=== PATIENT | male | born 1955 | race Caucasian/White ===

== ENCOUNTER → 2018-11-20 | Outpatient (CLI) | payer OTHER ==
[~2018-11-20] MED LIST: AMLODIPINE-VALSARTAN PO; ASPIRIN81 MG PO; ATORVASTATIN CA20 MG PO; DIATRIZOATE MEGL/DIATRIZOA SOD 30 ML BTL PO ONE; HYDROCHLOROTHIA25 MG PO; IOPAMIDOL 370 MG/ML 200 ML INFUS..BTL INJ ONE; SODIUM CHLORIDE 0.9% 50ML 50 ML ONE
[2018-11-20 09:48] LABS: BLOOD UREA NITROGEN 14 mg/dL (7-26); BUN/CREATININE RATIO 18 (6-25); CREATININE, SERUM 0.78 mg/dL (0.72-1.25); EST GLOMERULAR FILTRATION RATE > 60 ML/MIN (60-)
--- NOTE | 2018-11-20 11:11 | Diagnostic Imaging Report ---
Exam: CT abdomen and pelvis Clinical history: Constipation Technique: Helical images of the abdomen and pelvis were obtained after oral and IV contrast administration Findings: The lung bases are clear. There is no evidence of pleural effusion. The cardiac size is within normal limits. The liver, spleen, pancreas, gallbladder, adrenal glands, and kidneys are unremarkable. The small and large bowels are normal in caliber without evidence of obstruction. Sigmoid diverticulosis is noted without CT evidence of acute diverticulitis. There is no evidence of lymphadenopathy or free fluid. The aorta and IVC are normal in caliber. Atherosclerotic calcification of the aorta is noted. The bladder, prostate, and seminal vesicles are unremarkable. Impression: 1. No CT evidence of constipation. 2. Sigmoid diverticulosis. Signed by: Dr. Asim Ch MD on 11/20/2018 11:08 AM
== END ==
LOC: CT 08:43
PROVIDERS: ATTEND Internal Medicine Gastroenterology
DX: R10.32 Left lower quadrant pain (principal); I10 Essential (primary) hypertension; E66.01 Morbid (severe) obesity due to excess calories; Z71.3 Dietary counseling and surveillance; Z86.010 Personal history of colon polyps; Z83.71 Family history of colonic polyps
CPT/HCPCS: 36415; 74177; 82565; 84520; Q9967